=== PATIENT | female | born 1965 | race Caucasian/White ===

== ENCOUNTER 2016-12-28 08:14 | Emergency (ER) | payer BC ==
[2016-12-28 09:12] LABS: Bacteria,Urine 1+ /HPF (Negative); Bilirubin,Urine NEG (Negative); Blood,Urine LG (Negative); Ketones,Urine NEG (Negative); Leukocyte Esterase,Urine LG (Negative); Mucus,Urine 3+ /HPF; Nitrite,Urine POS (Negative); Urobilinogen,Urine < 2.0 mg/dL (<2.0)
[2016-12-28 12:20] LABS: Potassium 3.9 mmol/L (3.6-5.0)
[2016-12-28] MEDS ORDERED: MORPHINE IV ONE ×2 (12:27→16:20)
[2016-12-28] MEDS ORDERED: ZOFRAN IV ONE (12:27)
[2016-12-28] MEDS ORDERED: ROCEPHIN/NS 1 GM/50 ML 1 GM/50 ML BAG IV ONE (12:27)
--- NOTE | 2016-12-28 12:27 | Emergency Department Report ---
HPI - General Chief Complaint: Abdominal Pain Time Seen by Provider: 12/28/16 12:03 - HPI HPI: This is a 51-year-old female who drove herself and be seen today with complaint of left flank pain that has been going on since late last night, early this morning. It is associated with some nausea and vomiting. She denies any fever , dysuria, vaginal bleeding or discharge. She is not taken anything for symptoms prior to presentation. The patient has a history of non-insulin dependent diabetes and previous kidney stones. Her primary care doctor is a Dr. Patrick. No recent travel or sick contacts at home. ED Past Medical Hx - Past Medical History Previous Medical History?: Yes Hx Hypertension: Yes (noncompliant with medications for months to years) Hx Diabetes: Yes Hx Kidney Stones: Yes (2010) - Surgical History Past Surgical History?: No - Social History Smoking Status: Never Smoker Substance Use Type: None - Medications Home Medications: Home Medications Medication Instructions Recorded Confirmed Last Taken Type HYDROcodone/APAP 10-325 [Slade 1 each PO Q8HR PRN #20 tablet 06/24/14 Unknown Rx 10/325] amLODIPine [Norvasc] 5 mg PO DAILY #30 tab 06/24/14 Unknown Rx ED Review of Systems ROS: Stated complaint: LT SIDE PAIN Other details as noted in HPI Comment: All other systems reviewed and negative Constitutional: denies: chills, fever Eyes: denies: eye pain, eye discharge, vision change ENT: denies: ear pain, throat pain Respiratory: denies: cough, shortness of breath, wheezing Cardiovascular: denies: chest pain, palpitations Gastrointestinal: abdominal pain, nausea, vomiting Genitourinary: denies: urgency, dysuria, discharge Musculoskeletal: denies: joint swelling, arthralgia Skin: denies: rash, lesions Neurological: denies: headache, weakness, paresthesias Physical Exam - Physical Exam Vital Signs: Vital Signs 12/28/16 08:29 Temperature 98.3 F Pulse Rate 74 Respiratory 18 Rate Blood Pressure 166/82 O2 Sat by Pulse 99 Oximetry Physical Exam: GENERAL: The patient is well-developed well-nourished. HEENT: Normocephalic. Atraumatic. Extraocular motions are intact. Patient has moist mucous membranes. Pupils equal reactive to light bilaterally. NECK: Supple. Trachea is midline. CHEST/LUNGS: Clear to auscultation. There is no respiratory distress noted. HEART/CARDIOVASCULAR: Regular. There is no tachycardia. There is no gallop rub or murmur. ABDOMEN: Abdomen is soft, nontender. Unable to reproduce flank pain to palpation. Patient has normal bowel sounds. There is no abdominal distention. SKIN: There is no rash. There is no edema. There is no diaphoresis. NEURO: The patient is awake, alert, and oriented. The patient is cooperative. The patient has no focal neurologic deficits. The patient has normal speech. MUSCULOSKELETAL: There is no tenderness or deformity. There is no limitation range of motion. There is no evidence of acute injury. BACK: No midline thoracic or lumbar tenderness to palpation or deformity. Positive left-sided CVA tenderness to palpation. ED Course Vital Signs 12/28/16 08:29 Temperature 98.3 F Pulse Rate 74 Respiratory 18 Rate Blood Pressure 166/82 O2 Sat by Pulse 99 Oximetry ED Medical Decision Making - Lab Data Result diagrams: 12/28/16 17:13 12/28/16 11:41 - Radiology Data Radiology results: report reviewed Renal ultrasound shows left nephrolithiasis measuring 1 cm in diameter. Mild left pelvocaliectasis is present which would not be due to the intrarenal stone. Possible small right peripelvic renal cyst. CT of the abdomen and pelvis with IV contrast shows a 7 mm stone in the distal third of the left ureter with mild to moderate obstructive uropathy. Hepatic steatosis. - Medical Decision Making 51-year-old female presents with a one-day history of left flank pain and some nausea and vomiting. Patient had a renal ultrasound that did not show any significant process other than a intrarenal stone which does not appear to be the cause of her discomfort as it was previously seen on ultrasound or CT imaging. However due to the patient's level of discomfort and with her urinary tract infection findings, a CT of the abdomen and pelvis with IV contrast was done. This resulted as a 7 mm obstructive stone in the distal third of left ureter with [id number] hydronephrosis. Patient eventually had a CBC that showed a 22,000 white count as well. Patient did not have any fever or signs of hemodynamic instability or sepsis. However we do not have urology currently the patient appeared to need some type of intervention whether it is a stent or lithotripsy. I spoke with the urologist at [facility] who accepted the patient for admission/transfer and the patient will most likely go to the OR for urological intervention. - Differential Diagnosis nephrolithiasis, pyelonephritis, , colitis Critical Care Time: No Critical care attestation.: If time is entered above; I have spent that time in minutes in the direct care of this critically ill patient, excluding procedure time. ED Disposition Clinical Impression: Obstructive uropathy, Kidney stone on left side Hydronephrosis Qualifiers: Hydronephrosis type: unspecified Qualified Code(s): N13.30 - Unspecified hydronephrosis Leukocytosis Qualifiers: Leukocytosis type: unspecified Qualified Code(s): D72.829 - Elevated white blood cell count, unspecified UTI (urinary tract infection) Qualifiers: Urinary tract infection type: acute cystitis Hematuria presence: with hematuria Qualified Code(s): N30.01 - Acute cystitis with hematuria Disposition: DC/TX ANOTHER TYPE HEALTHCARE Is pt being admited?: No Condition: Fair Instructions: Abdominal Pain (ED) Referrals: [facility] [Primary Care Provider] - 3-5 Days Time of Disposition: 21:05
--- NOTE | 2016-12-28 14:05 | Ultrasound Report ---
Renal ultrasound. History: Flank pain history of stones, UTI. Findings: The kidneys are normal in size and configuration. The longitudinal axis of the right kidney measures 12.6 cm and of the left kidney measures 13.5 cm. There is an echogenic focus in the lower pole of the left kidney which measures 1 cm in diameter. This corresponds to a renal stone seen on a previous abdominal CT performed in June 2014. There is minimal fullness of the left pelvic calyceal system but no gross hydronephrosis. There appears to be a small parapelvic cyst on the right. No other renal masses are seen. Images of the bladder appear normal. Impression: Left nephrolithiasis measuring 1 cm in diameter. Mild left pelvocaliectasis is present which would not be due to the intrarenal stone 2. Possible small right parapelvic renal cyst.
[2016-12-28] MEDS ORDERED: NACL ONE (15:31)
--- NOTE | 2016-12-28 16:14 | Cat Scan Report ---
CT of the abdomen and pelvis with IV contrast. History: Abdominal and flank pain. Findings: There is diffuse hypodensity of the liver with no focal abnormalities. The spleen, pancreas, and gallbladder are normal. There is a 7 mm stone in the distal left ureter with moderate obstructive uropathy. Perinephric stranding is seen on the left. The uterus and adnexal regions are unremarkable. The appendix is normal. Impression: 1. 7 mm stone in the distal third of the left ureter with mild to moderate obstructive uropathy. 2. Hepatic steatosis.
[2016-12-28] MEDS ORDERED: NACL 0.9% 1000 ML 1,000 ML IV ONE (16:49)
[2016-12-28 17:42] LABS: Hematocrit 38.7 % (30.3-42.9); Hemoglobin 12.3 gm/dl (10.1-14.3); Mean Corpuscular HGB Conc 32 % (30-34); Mean Corpuscular Hemoglobin 26 pg (28-32); Mean Corpuscular Volume 81 fl (79-97); Platelet Count 241 K/mm3 (140-440); Red Blood Count 4.76 M/mm3 (3.65-5.03); Red Cell Distribution Width 17.6 % (13.2-15.2); White Blood Count 22.4 K/mm3 (4.5-11.0)
[2016-12-28 18:24] LABS: Basophils % (Manual) 0 % (0.0-1.8); Blastocytes % (Manual) 0 %; Eosinophils % (Manual) 0 % (0.0-4.3)
[2016-12-28 18:25] LABS: Anisocytosis 1+; Diff Status Complete; Platelet Clumps Rare; Platelet Estimate Consistent w Auto
[2016-12-28 19:32] VITALS: BP 155/92
== END 2016-12-28 19:45 | disposition other institution (70) ==
LOC: ED 08:14
DX: N13.9 Obstructive and reflux uropathy, unspecified (principal); N20.0 Calculus of kidney; N13.30 Unspecified hydronephrosis; D72.829 Elevated white blood cell count, unspecified; N30.01 Acute cystitis with hematuria; I10 Essential (primary) hypertension; E11.9 Type 2 diabetes mellitus without complications
CPT/HCPCS: 36415; 74177; 76770; 80048; 81001; 81025; 85007; 85025; 96361; 96365; 96375; 96376; 99285; J0696; J2270; J2405; J7030; Q9967

== ENCOUNTER 2021-10-29 15:03 | Emergency (ER) | payer BC ==
[2021-10-29 15:32] VITALS: BP 126/79
[2021-10-29] MEDS ORDERED: ACETAMINOPHEN 325 MG TAB PO ONE (16:11)
[2021-10-29] MEDS ORDERED: IBUPROFEN 400 MG TAB PO ONE (16:11)
--- NOTE | 2021-10-29 16:18 | Emergency Department Report ---
ED General Adult HPI - General Chief complaint: Pain General Stated complaint: FELL/RT ARM INJURY PUI?: No Time Seen by Provider: 10/29/21 15:40 Source: patient, RN notes reviewed Mode of arrival: Ambulatory Limitations: No Limitations - History of Present Illness Initial comments: The patient was evaluated in the emergency department for symptoms described in the history of present illness. He/she was evaluated in the context of the global COVID-19 pandemic, which necessitated consideration that the patient might be at risk for infection with the virus that causes COVID-19. Institutional protocols and algorithms that pertain to the evaluation of patients at risk for COVID-19 are in a state of rapid change based on inf ormation released by regulatory bodies including the CDC and federal and state organizations. These policies and algorithms were followed during the patient's care in the emergency department. Please note that these policies, procedures and recommendations changed on a rapid basis. The patient is a 56-year-old female with a history of obesity who is right-hand dominant, who presents to the ER today with a complaint of resolved right upper extremity pain, and right medial leg pain, near her proximal thigh, after she stumbled while walking downstairs, and braced herself and caught herself with her right hand, to avoid falling. She denies additional injuries or complaints. This happened just prior to evaluation. -: Sudden Location: right, upper extremity, lower extremity Quality: aching Consistency: constant Improves with: movement, rest Associated Symptoms: denies other symptoms - Related Data Previous Rx's Medication Instructions Recorded Last Taken Type amLODIPine 5 mg PO DAILY #30 tab 06/24/14 Unknown Rx Acetaminophen [Non-Aspirin Extra 500 mg PO Q6HR PRN #30 tablet 10/29/21 Unknown Rx Strength] Ibuprofen [Motrin] 600 mg PO Q8H PRN #30 tablet 10/29/21 Unknown Rx Allergies Allergy/AdvReac Type Severity Reaction Status Date / Time No Known Allergies Allergy Verified 06/24/14 00:20 ED Review of Systems ROS: Stated complaint: FELL/RT ARM INJURY Other details as noted in HPI Constitutional: denies: fever Eyes: denies: eye discharge Respiratory: denies: cough Cardiovascular: denies: chest pain Gastrointestinal: denies: abdominal pain Musculoskeletal: arthralgia, myalgia Neurological: denies: weakness ED Past Medical Hx - Past Medical History Previous Medical History?: Yes Hx Hypertension: Yes (noncompliant with medications for months to years) Hx Diabetes: Yes Hx Kidney Stones: Yes (2010) - Surgical History Past Surgical History?: No - Social History Smoking Status: Never Smoker Substance Use Type: None - Medications Home Medications: Home Medications Medication Instructions Recorded Confirmed Last Taken Type amLODIPine 5 mg PO DAILY #30 tab 06/24/14 Unknown Rx Acetaminophen [Non-Aspirin Extra 500 mg PO Q6HR PRN #30 tablet 10/29/21 Unknown Rx Strength] Ibuprofen [Motrin] 600 mg PO Q8H PRN #30 tablet 10/29/21 Unknown Rx ED Physical Exam - General Limitations: No Limitations, Other (During the history and physical examination I am chaperoned by warehouse driver Mukul Magallon) General appearance: alert, in no apparent distress, obese - Head Head exam: Present: atraumatic, normocephalic - Eye Eye exam: Present: normal appearance, EOMI. Absent: nystagmus - ENT ENT exam: Present: normal exam, normal orophraynx, mucous membranes moist, normal external ear exam - Neck Neck exam: Present: normal inspection, full ROM. Absent: tenderness, meningis mus - Respiratory Respiratory exam: Present: normal lung sounds bilaterally. Absent: respiratory distress, wheezes, rales, rhonchi, stridor, decreased breath sounds - Cardiovascular Cardiovascular Exam: Present: regular rate, normal rhythm, normal heart sounds. Absent: bradycardia, tachycardia, irregular rhythm, systolic murmur, diastolic murmur, rubs, gallop - GI/Abdominal GI/Abdominal exam: Present: soft. Absent: distended, tenderness, guarding, rebound, rigid, pulsatile mass - Extremities Exam Extremities exam: Present: normal inspection (There is right medial thigh tenderness.), full ROM, other (2+ pulses noted in the bilateral upper and lower extremities. There is no palpable cord. negative Homans sign. Muscular compartments are soft. The pelvis is stable.). Absent: tenderness (There is no tenderness over the elbows, shoulder, wrist or hand. There is no hip, knee tenderness or ankle tenderness), pedal edema, calf tenderness - Back Exam Back exam: Present: normal inspection, full ROM. Absent: tenderness, CVA tenderness (R), CVA tenderness (L), paraspinal tenderness, vertebral tenderness - Neurological Exam Neurological exam: Present: alert, oriented X3, normal gait, other (No facial droop. Tongue midline. Extraocular movements intact bilaterally. Facial sensation intact to light touch in V1, V2, V3 distribution bilaterally. 5 and a 5 strength in 4 extremities. Sensation intact to light touch in 4 extremities.). Absent: motor sensory deficit - Psychiatric Psychiatric exam: Present: normal affect, normal mood - Skin Skin exam: Present: warm, dry, intact, normal color. Absent: rash ED Course Vital Signs 10/29/21 15:31 Temperature 98.4 F Pulse Rate 76 Respiratory 16 Rate Blood Pressure 126/79 [Left] O2 Sat by Pulse 98 Oximetry ED Medical Decision Making - Lab Data Vital Signs 10/29/21 15:31 Temperature 98.4 F Pulse Rate 76 Respiratory 16 Rate Blood Pressure 126/79 [Left] O2 Sat by Pulse 98 Oximetry - Medical Decision Making Differential diagnosis, including but limited to: Sprain, strain, mechanical fall Assessment and plan: 56-year-old female, who was afebrile, with reassuring vital signs, who is clinically sober, presenting to the ER today with a complaint of resolved right upper extremity pain after walking downstairs, tripping, grabbing the railing, feeling like she pulled her arm, and straining her right medial thigh. She has no long bony tenderness. She is neurovascularly intact. She walks with a steady gait. Range of motion intact in the bilateral upper and lower extremities. There is no significant long bony tenderness. Do not see indication for x-rays. Counseled patient on natural history of mechanical fall. Rest, ice, compression, elevation alternate Tylenol and Motrin, outpatient follow-up. Critical care attestation.: If time is entered above; I have spent that time in minutes in the direct care of this critically ill patient, excluding procedure time. ED Disposition Clinical Impression: Right leg pain, History of sprain of arm, Fall Disposition: HOME / SELF CARE / HOMELESS Is pt being admited?: No Does the pt Need Aspirin: No Condition: Good Instructions: RICE Therapy for Routine Care of Injuries Additional Instructions: As we discussed, pain typically gets worse before it gets better after fall and blunt trauma. Rest and avoid heavy lifting, and avoid strenuous physical activity. Engage in physical activities as tolerated. For pain, the patient can take ibuprofen, 600 mg with food every 6 hours, alternating with acetaminophen, 650 mg every 4 hours, also which can be purchased [id number]. Return to the ER right away with new pain, worsened pain, migration of pain, fevers, chills, confusion, weakness, numbness, intractable nausea or vomiting, severe chest pain, or severe abdominal pain. Please return to the emergency room right away with new pain, worsened pain, migration of pain, projectile vomiting, change in mental status, confusion, inability tolerate liquid feeds, new, worsened or different symptoms not present on the initial emergency room evaluation Follow-up with the primary care doctor within 2 weeks Prescriptions: Ibuprofen [Motrin] 600 mg PO Q8H PRN #30 tablet PRN Reason: Pain Acetaminophen [Non-Aspirin Extra Strength] 500 mg PO Q6HR PRN #30 tablet PRN Reason: Pain , Severe (7-10) Referrals: [facility] [Provider Group] - 3-5 Days Forms: Work/School Release Form(ED)
== END 2021-10-29 17:10 | disposition home or self-care (01) ==
LOC: ED 15:03
DX: M79.621 Pain in right upper arm (principal); M79.604 Pain in right leg; I10 Essential (primary) hypertension; E11.9 Type 2 diabetes mellitus without complications; Z87.442 Personal history of urinary calculi; W18.39XA Other fall on same level, initial encounter; Y93.89 Activity, other specified; Y92.89 Other specified places as the place of occurrence of the external cause; Y99.8 Other external cause status
CPT/HCPCS: 99282